=== PATIENT | female | born 1985 | race Hispanic/Latino ===

== ENCOUNTER 2018-07-02 12:12 | Outpatient (CLI) | payer OTHER ==
--- NOTE | 2018-07-02 13:23 | ULT ---
PELVIC ULTRASOUND WITH GRAYSCALE AND DOPPLER COLORFLOW IMAGING: INDICATIONS: Secondary amenorrhea. TECHNIQUE: Transabdominal and transvaginal pelvic ultrasound performed. FINDINGS: The endometrium is prominent at 9 mm. No uterine parenchymal mass is identified. The uterus demonst rates a length of approximately 8 cm. The ovaries are not visualized for comment. No evidence of fr ee pelvic fluid. IMPRESSION: 1. Prominence of the endometrium at 9 mm. This could relate to physiologic hypertrophy, given the p atient's age. As a conservative measure, given the history of secondary amenorrhea, recommend a six- week pelvic ultrasound to evaluate at a different stage of cycle. 2. Nonvisualization of ovaries for comment. CODE T POS: ANGELES
== END 2018-07-02 12:13 | disposition home or self-care (01) ==
LOC: MADULT 12:12
PROVIDERS: ATTEND Family Medicine
DX: N91.1 Secondary amenorrhea (principal)
CPT/HCPCS: 76856